=== PATIENT | male | born 1990 | race Two or more races ===

== ENCOUNTER 2016-11-15 22:41 | Emergency (ER) | payer MEDICAID, OTHER ==
[~2016-11-15] VITALS: Ht 182.9 cm; Wt 90.7 kg
[2016-11-15 22:46] VITALS: BP 130/76
== END 2016-11-16 00:07 | disposition home or self-care (01) ==
LOC: ER 22:44
DX: K08.89 Other specified disorders of teeth and supporting structures (principal); J45.909 Unspecified asthma, uncomplicated; F17.200 Nicotine dependence, unspecified, uncomplicated; F19.10 Other psychoactive substance abuse, uncomplicated; Z88.8 Allergy status to other drugs, medicaments and biological substances
CPT/HCPCS: A4606; Z7610

== ENCOUNTER 2017-11-13 21:22 | Emergency (ER) | payer OTHER ==
[~2017-11-13] VITALS: Ht 188 cm; Wt 97.5 kg
[2017-11-13 21:58] VITALS: BP 125/76
[2017-11-13 23:07] LABS: BASOPHILS # (AUTO) 0.1 /CMM (0.0-0.2); BASOPHILS % (AUTO) 0.5 % (0.0-2.0); HEMATOCRIT 43 % (39-51); HEMOGLOBIN 14.4 g/dL (13.5-17.5); LYMPHOCYTES # (AUTO) 2.3 /CMM (0.8-4.8); LYMPHOCYTES % (AUTO) 23.8 % (20.0-44.0); MEAN CORPUSCULAR HGB CONC 34 g/dl (31.0-36.0); MEAN CORPUSCULAR VOLUME 90 fL (80-96); MONOCYTES # (AUTO) 0.7 /CMM (0.1-1.30); MONOCYTES % (AUTO) 7.6 % (2.0-12.0); NEUTROPHILS # (AUTO) 6.3 /CMM (1.8-8.9); NEUTROPHILS % (AUTO) 64.1 % (43.0-81.0); PLATELET COUNT (AUTO) 173 /CMM (150-450); RED BLOOD CELL COUNT(AUTO) 4.76 MIL/uL (4.5-6.0); WHITE BLOOD COUNT (AUTO) 9.8 K/uL (4.3-11.0)
[2017-11-13 23:16] LABS: CALCIUM, SERUM 8.3 mg/dL (8.5-10.1); CREATININE 0.8 mg/dL (0.6-1.3); POTASSIUM 3.4 mmol/L (3.5-5.1)
[2017-11-13 23:23] LABS: ALBUMIN 3.9 g/dL (3.4-5.0); BILIRUBIN,TOTAL 0.2 mg/dL (0.2-1.0); TOTAL PROTEIN, SERUM 7.8 g/dL (6.4-8.2)
== END 2017-11-14 00:36 | disposition home or self-care (01) ==
LOC: ER 21:22
DX: R51 Headache (principal); R53.1 Weakness; R40.4 Transient alteration of awareness; F17.200 Nicotine dependence, unspecified, uncomplicated; Z88.8 Allergy status to other drugs, medicaments and biological substances
CPT/HCPCS: 36415; 70450-TC; 80053-TC; 85025-TC; A4606; Z7610